=== PATIENT | male | born 1955 | race Two or more races ===

== ENCOUNTER 2020-04-26 17:35 | Emergency (ER) | payer SELFPAY ==
[~2020-04-26] VITALS: Ht 182.9 cm; Wt 102.1 kg
[2020-04-26 17:50] VITALS: BP 125/83
--- NOTE | 2020-04-26 18:17 | Diagnostic Imaging Report ---
EXAM: CT Head Without Intravenous Contrast CLINICAL HISTORY: SYNCOPE TECHNIQUE: Axial computed tomography images of the head/brain without intravenous contrast. CTDI is 53 mGy and DLP is 1018.8 mGy-cm. One or more of the following dose reduction techniques were used: automated exposure control, adjustment of the mA and/or kV according to patient size, use of iterative reconstruction technique. COMPARISON: No relevant prior studies available. FINDINGS: Brain: No hemorrhage, extra-axial fluid collection, mass effect, or edema. Ventricles: Unremarkable. Bones/joints: Unremarkable. Soft tissues: Unremarkable. Sinuses: Unremarkable as visualized. Mastoid air cells: Unremarkable as visualized. IMPRESSION: 1. No acute intracranial abnormality.
--- NOTE | 2020-04-26 18:19 | Emergency Room Report ---
History of Present Illness General Chief Complaint: General Complaint Source: Patient Present Illness HPI 64-year-old male no past medical history presented from home after a syncopal event. Patient apparently was taking a hit of marijuana and developed strong coughing. He stepped outside to get some fresh air and apparently passed out. Witnessed by . Patient now presents ambulatory to the ER. He denies any head neck or back pain no chest or abdominal pain no shortness of breath or coughing at this time. Patient apparently did hit his head during the fall. 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: No Patient History Reviewed Nursing Documentation: PMH: Agreed; PSxH: Agreed Nursing Documentation-PMH Past Medical History: No Stated History Review of Systems All Other Systems: negative except mentioned in HPI Physical Exam Vital Signs Date Time Temp Pulse Resp B/P (MAP) Pulse Ox O2 Delivery O2 Flow Rate FiO2 04/26/20 17:39 99.0 77 16 125/83 (97) 100 Room Air Sp02 EP Interpretation: reviewed, normal General Appearance: well appearing, no apparent distress Head: normocephalic, atraumatic Eyes: bilateral eye PERRL, bilateral eye EOMI ENT: hearing grossly normal, moist mucus membranes Neck: full range of motion, supple Respiratory: lungs clear, normal breath sounds, no rhonchi, no respiratory distress, no retraction, no wheezing Cardiovascular #1: normal peripheral pulses, regular rate, rhythm, no murmur Gastrointestinal: non tender, soft, non-distended, no guarding Neurologic: alert, motor strength/tone normal, 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 Low suspicion for intracranial hemorrhage. CT scan of the brain showed no acute process. EKG showed no ischemic changes. No signs of arrhythmia. Patient again no complaints in the ER. I have a low suspicion for emergent medical process including PE aneurysm or dissection. Patient will be discharged home. I did encourage him to avoid smoking marijuana heavily. Precautions were given Labs - Laboratory Tests Test 04/26/20 18:03 White Blood Count 4.9 K/UL (4.8-10.8) Red Blood Count 4.10 M/UL (4.70-6.10) L Hemoglobin 12.5 G/DL (14.2-18.0) L Hematocrit 40.7 % (42.0-52.0) L Mean Corpuscular Volume 99 FL (80-99) Mean Corpuscular Hemoglobin 30.4 PG (27.0-31.0) Mean Corpuscular Hemoglobin Concent 30.6 G/DL (32.0-36.0) L Red Cell Distribution Width 14.4 % (11.6-14.8) Platelet Count 228 K/UL (150-450) Mean Platelet Volume 7.6 FL (6.5-10.1) Neutrophils (%) (Auto) 37.3 % (45.0-75.0) L Lymphocytes (%) (Auto) 53.9 % (20.0-45.0) H Monocytes (%) (Auto) 3.7 % (1.0-10.0) Eosinophils (%) (Auto) 3.5 % (0.0-3.0) H Basophils (%) (Auto) 1.6 % (0.0-2.0) Sodium Level 141 MMOL/L (136-145) Potassium Level 4.2 MMOL/L (3.5-5.1) Chloride Level 106 MMOL/L (98-107) Carbon Dioxide Level 27 MMOL/L (21-32) Anion Gap 8 mmol/L (5-15) Blood Urea Nitrogen 12 mg/dL (7-18) Creatinine 1.2 MG/DL (0.55-1.30) Estimated Glomerular Filtration Rate > 60 mL/min (>60) Glucose Level 98 MG/DL (74-106) Calcium Level 9.0 MG/DL (8.5-10.1) Total Bilirubin 0.2 MG/DL (0.2-1.0) Aspartate Amino Transferase (AST) 21 U/L (15-37) Alanine Aminotransferase (ALT) 23 U/L (12-78) Alkaline Phosphatase 61 U/L (46-116) Troponin I 0.000 ng/mL (0.000-0.056) Total Protein 7.3 G/DL (6.4-8.2) Albumin 3.4 G/DL (3.4-5.0) Globulin 3.9 g/dL Albumin/Globulin Ratio 0.9 (1.0-2.7) L On reevaluation: Patient in no acute distress and nontoxic-appearing Plan-discharge home with outpatient follow-up Last Vital Signs Date Time Temp Pulse Resp B/P (MAP) Pulse Ox O2 Delivery O2 Flow Rate FiO2 04/26/20 17:39 99.0 77 16 125/83 (97) 100 Room Air Disposition: HOME, SELF-CARE Condition: Stable Referrals: NOT CHOSEN IPA/,REFERRING (PCP) Moiz Martinez M.D. Apr 26, 2020 18:19
[2020-04-26 18:21] LABS: BASOPHILS % (AUTO) 1.6 % (0.0-2.0); EOSINOPHILS % (AUTO) 3.5 % (0.0-3.0); HEMATOCRIT 40.7 % (42.0-52.0); HEMOGLOBIN 12.5 G/DL (14.2-18.0); LYMPHOCYTES % (AUTO) 53.9 % (20.0-45.0); MEAN CORPUSCULAR VOLUME 99 FL (80-99); MONOCYTES % (AUTO) 3.7 % (1.0-10.0); NEUTROPHILS % (AUTO) 37.3 % (45.0-75.0); PLATELET COUNT 228 K/UL (150-450); RED CELL DISTRIBUTION WIDTH 14.4 % (11.6-14.8); WHITE BLOOD COUNT 4.9 K/UL (4.8-10.8)
[2020-04-26 18:34] LABS: ANION GAP 8 mmol/L (5-15); BLOOD UREA NITROGEN 12 mg/dL (7-18); CARBON DIOXIDE 27 MMOL/L (21-32); CHLORIDE 106 MMOL/L (98-107); CREATININE 1.2 MG/DL (0.55-1.30); POTASSIUM 4.2 MMOL/L (3.5-5.1); SODIUM 141 MMOL/L (136-145)
[2020-04-26 18:39] LABS: ALANINE AMINOTRANSFERASE 23 U/L (12-78); ALBUMIN 3.4 G/DL (3.4-5.0); ALBUMIN/GLOBULIN RATIO 0.9 (1.0-2.7); ALKALINE PHOSPHATASE 61 U/L (46-116); ASPARTATE AMINO TRANSFERASE 21 U/L (15-37); BILIRUBIN,TOTAL 0.2 MG/DL (0.2-1.0)
[2020-04-26 19:15] VITALS: BP 125/83
== END 2020-04-26 19:15 | disposition home or self-care (01) ==
LOC: EMR 18:14
DX: R55 Syncope and collapse (principal); F12.90 Cannabis use, unspecified, uncomplicated
CPT/HCPCS: 36415; 70450; 80053; 84484; 85025; 93005; 99284